=== PATIENT | male | born 1950 | race Two or more races ===

== ENCOUNTER 2022-02-02 22:15 | Emergency (ER) | payer OTHER ==
[~2022-02-02] VITALS: Ht 177.8 cm; Wt 113.6 kg
[2022-02-03] MEDS ORDERED: HYDR-4902 PO (02:29)
[2022-02-03] MEDS ORDERED: CEPH-509 PO (02:29)
[2022-02-03] MEDS ORDERED: LIDOCAINE 1% HCL (LOCAL ANESTH.) INJ 20ML MDV IJ ONE (02:30)
[2022-02-03] MEDS ORDERED: ONDA-144 PO (02:44)
[2022-02-03 04:01] VITALS: BP 128/68
== END 2022-02-03 04:04 | disposition home or self-care (01) ==
LOC: EDBD 22:15 → ER 22:15
DX: S42.321A Displaced transverse fracture of shaft of humerus, right arm, initial encounter for closed fracture (principal); S41.111A Laceration without foreign body of right upper arm, initial encounter; V80.010A Animal-rider injured by fall from or being thrown from horse in noncollision accident, initial encounter; Y93.89 Activity, other specified; Y92.89 Other specified places as the place of occurrence of the external cause; Y99.8 Other external cause status
CPT/HCPCS: 12001; 29105; 70450; 71045; 72125; 73060